=== PATIENT | female | born 1980 | race Asian ===

== ENCOUNTER 2017-05-19 22:10 | Inpatient (IN) | payer SELFPAY ==
[~2017-05-19] VITALS: Ht 167.6 cm; Wt 86.2 kg
[2017-05-19] MEDS ORDERED: BETAMETH ACET/BETAMETH NA PH 30 MG/5 ML VIAL IM ONE (22:49)
[2017-05-19] MEDS ORDERED: TERBUTALINE 1 MG/ML VIAL SUBQ ONE (23:01)
[2017-05-19] MEDS ORDERED: LACTATED RINGERS 1,000 ML IV SCH (23:03)
[2017-05-19] MEDS ORDERED: IBUPROFEN 800 MG TAB PO PRN (23:05)
[2017-05-19] MEDS ORDERED: NIFEdipine 10 MG CAPLF ONE (23:06)
[2017-05-19] MEDS ORDERED: ePHEDrine 50 MG/ML VIAL ONE (23:45)
[2017-05-19] MEDS ORDERED: ONDANSETRON 4 MG/2 ML VIAL ONE (23:45)
[2017-05-19] MEDS ORDERED: ceFAZolin 1,000 MG VIAL ONE ×2 (23:45→23:50)
[2017-05-19] MEDS ORDERED: OXYTOCIN 10 UNITS/ML VIAL ONE (23:45)
[2017-05-19] MEDS ORDERED: BUPIVACAINE-MPF 0.75% 10 ML VIAL INJ ONE (23:45)
[2017-05-19] MEDS ORDERED: METHYLERGONOVINE 0.2 MG/ML AMP ONE ×2 (23:45→23:59)
[2017-05-19 23:49] LABS: HEMATOCRIT 38.8 % (36-48); MEAN CORPUSCULAR HEMOGLOBIN 30 pg (27-31); MEAN CORPUSCULAR HGB CONC 34 g/dL (33-37); MEAN CORPUSCULAR VOLUME 90 fL (80-94); PLATELET COUNT (AUTO) 225 K/uL (140-450); RED BLOOD CELL COUNT(AUTO) 4.31 MIL/uL (4.20-5.40); RED CELL DISTRIBUTION WIDTH 13.5 % (11.6-13.7); WHITE BLOOD COUNT (AUTO) 19.6 K/uL (4.8-10.8)
[2017-05-19] MEDS ORDERED: CITRIC ACID/SODIUM CITRATE 30 ML UDC ONE (23:49)
[2017-05-19] MEDS ORDERED: fentaNYL 0.05 MG/ML VIAL ONE (23:57)
[2017-05-19] MEDS ORDERED: MIDAZOLAM 2 MG/2 ML VIAL ONE (23:57)
[2017-05-19] MEDS ORDERED: KETAMINE 500 MG/5 ML VIAL ONE (23:58)
[2017-05-19] MEDS ORDERED: MORPHINE PRES FREE 10 MG/10 ML AMP IV ONE (23:58)
[2017-05-19] MEDS ORDERED: TRIAMCINOLONE 40 MG/ML 5ML VIAL ONE (23:59)
[2017-05-20] MEDS ORDERED: METOCLOPRAMIDE 10 MG/2 ML INJ VIAL ONE (00:02)
[2017-05-20] MEDS ORDERED: OXYTOCIN 10 UNITS/ML VIAL ONE (00:03)
[2017-05-20] MEDS ORDERED: MISOPROSTOL 100 MCG TAB ONE ×2 (00:08→00:10)
[2017-05-20] MEDS ORDERED: CARBOPROST 250 MCG/ML AMP IM ONE (00:09)
[2017-05-20 00:14] LABS: ALBUMIN 2.4 g/dL (3.4-5.0); ANION GAP 12.7 (8-16); CARBON DIOXIDE 20.9 mmol/L (21-32); CREATININE 0.7 mg/dL (0.6-1.3); POTASSIUM 3.6 mmol/L (3.5-5.1); TOTAL BILIRUBIN 0.5 mg/dL (0.0-1.0)
[2017-05-20 00:15] LABS: LYMPHOCYTES % (MANUAL) 13 % (20-46); MONOCYTES % (MANUAL) 3 % (5-12)
[2017-05-20] MEDS ORDERED: ceFAZolin 1,000 MG VIAL IVP ONE (00:40)
[2017-05-20] MEDS ORDERED: KETOROLAC 30 MG/ML VIAL IVP PRN (01:30)
[2017-05-20] MEDS ORDERED: ONDANSETRON 4 MG/2 ML VIAL IVP PRN (01:30)
[2017-05-20] MEDS ORDERED: diphenhydrAMINE 50 MG/ML VIAL IVP PRN (01:30)
[2017-05-20] MEDS ORDERED: OXYTOCIN 20 UNITS/LR PREMIX 1,000 ML IV ONE (02:06)
[2017-05-20 04:53] VITALS: BP 131/66
[2017-05-20] MEDS: OXYTOCIN 20 UNITS in LACTATED RINGERS 1,000 ML IV SCH ×2 (10:18→17:49)
[2017-05-21] MEDS ORDERED: SIMETHICONE 80 MG TAB.CHEW PO PRN (06:25)
[2017-05-21] MEDS ORDERED: OXYTOCIN 20 UNITS in LACTATED RINGERS 1,000 ML IV SCH (06:25)
[2017-05-21] MEDS ORDERED: TRIMETHOBENZAMIDE 200 MG/2 ML SYR IM PRN (06:25)
[2017-05-21] MEDS ORDERED: TEMAZEPAM 15 MG CAP PO PRN (06:25)
[2017-05-21] MEDS ORDERED: oxyCODONE/APAP 5/325 MG 1 TAB TAB PO PRN (06:25)
[2017-05-21] MEDS ORDERED: MEASLES, MUMPS, AND RUBELLA 1 VIAL SQVAC PRN (06:25)
[2017-05-21] MEDS ORDERED: IBUPROFEN 800 MG TAB PO PRN (06:25)
[2017-05-21] MEDS ORDERED: METHYLERGONOVINE 0.2 MG/ML AMP IM PRN (06:25)
[2017-05-21] MEDS ORDERED: HYDROcodone/APAP 5/325 MG 1 TAB TAB PO PRN (06:25)
--- NOTE | 2017-05-21 10:03 | NUR ---
PATIENT HAS BEEN SCREENED AND CATEGORIZED LOW NUTRITION RISK. PATIENT WILL BE SEEN WITHIN 7 DAYS OF ADMISSION. 05/26/[address]
[2017-05-21] MEDS ORDERED: DOCUSATE SOD/SENNA 50/8.6 MG 1 TAB PO SCH (21:00)
[2017-05-21 22:07] LABS: HEMATOCRIT 34.3 % (36-48); HEMOGLOBIN 11.4 g/dL (12.0-16.0); MEAN CORPUSCULAR HEMOGLOBIN 30 pg (27-31); MEAN CORPUSCULAR HGB CONC 33 g/dL (33-37); MEAN CORPUSCULAR VOLUME 91 fL (80-94); PLATELET COUNT (AUTO) 252 K/uL (140-450); RED BLOOD CELL COUNT(AUTO) 3.76 MIL/uL (4.20-5.40); RED CELL DISTRIBUTION WIDTH 13.9 % (11.6-13.7); WHITE BLOOD COUNT (AUTO) 18.2 K/uL (4.8-10.8)
[2017-05-21 22:36] LABS: LYMPHOCYTES % (MANUAL) 14 % (20-46); MONOCYTES % (MANUAL) 7 % (5-12)
[2017-05-22] MEDS ORDERED: INFLUENZA VIRUS VACCINE QUAD 0.5 ML SYR IMVAC SCH (05:25)
== END 2017-05-22 13:15 | disposition home or self-care (01) | DRG 765 ==
LOC: MLD 22:10 → EDBD 23:14 → OBSVTOIN 23:14 → MFCC 05-20 02:20
PROVIDERS: ADMIT Obstetrics & Gynecology; ATTEND Obstetrics & Gynecology
PROC: 10D00Z1 Extraction of Products of Conception, Low, Open Approach (ICD-10-PCS; principal; 2017-05-20)
DX: O32.1XX2 Maternal care for breech presentation, fetus 2 (principal); O30.003 Twin pregnancy, unspecified number of placenta and unspecified number of amniotic sacs, third trimester; Z37.2 Twins, both liveborn; O69.81X0 Labor and delivery complicated by cord around neck, without compression, not applicable or unspecified; Z3A.31 31 weeks gestation of pregnancy
CPT/HCPCS: 36415; 51702; 80053; 85025; 86592; 86886; 86900; 86901; 90658; 90715; G0378; J0690; J0702; J2210; J2250; J2270; J2405; J2590; J2765; J3010; J3105; J3301; J3490; J7120